=== PATIENT | male | born 1960 | race Caucasian/White ===

== ENCOUNTER 2017-05-14 11:09 | Inpatient (IN) | payer OTHER ==
[~2017-05-14] VITALS: Ht 180.3 cm; Wt 127.7 kg
[~2017-05-14 11:09] MED LIST: Aleve PO; CLARINEX5 MG PO; Coumadin,Jantoven PO; DEMADEX20 MG PO; FLONASE16 G1 BOTH NARES; Fioricet,Esgic,Repan PO; Flonase BOTH NARES; GLUCOSAMINE OTC; K-TAB10 MEQ PO; METOLAZONE5 MG PO; PLAVIX75 MG PO; ST. JOSEPH ASPI81 MG PO; Theragran PO
[2017-05-14 12:07] LABS: BASOPHIL (%) 0.3 % (0-1); EOSINOPHIL (%) 4.8 % (0-5); EOSINOPHIL COUNT 0.4 K/uL (0-0.3); HEMATOCRIT 41.4 % (38.0-50.0); IMMATURE GRANULOCYTE (%) 0.8 % (0.0-0.7); LYMPHOCYTE (%) 14.9 % (15-42); LYMPHOCYTE COUNT 1.2 K/uL (1.0-2.8); MCH 29.8 PG (29.0-34.0); MCHC 33.1 G/DL (30.0-36.0); MONOCYTE (%) 7.3 % (3-12); MONOCYTE COUNT 0.6 K/uL (0-0.8); NEUTROPHIL (%) 71.9 % (45-76); NEUTROPHIL COUNT 5.7 K/uL (1.8-6.4); PLATELET COUNT 235 K/uL (156-360); RBC DIS.WIDTH-CV 12.2 % (11.8-14.6); RBC DIS.WIDTH-SD 40.1 % (39-53)
[2017-05-14 12:08] LABS: HEMOGLOBIN 13.7 G/DL (12.5-16.6)
[2017-05-14 12:11] LABS: INTER. NORMALIZED RATIO 1.1
[2017-05-14 12:12] LABS: CHLORIDE 108 mEq/L (99-109); SODIUM 144 mEq/L (136-147)
[2017-05-14 12:13] LABS: PTT 29.4 SEC (25-37)
[2017-05-14 12:14] LABS: GLUCOSE 109 mg/dL (70-99)
[2017-05-14 12:18] LABS: CREATININE 0.9 mg/dL (0.6-1.3); GFR ESTIMATE (CALCULATED) > 59 mL/min/ (58.99-99999); UREA NITROGEN (BUN) 15 mg/dL (9-23)
[2017-05-14 12:24] LABS: TROP-I INTERPRETATION NEGATIVE; TROPONIN-I 0.03 ng/mL (0.0-0.30)
[2017-05-14] MEDS ORDERED: BUTALB-CAFF-AC1 EACH PO (14:26)
[2017-05-14] MEDS ORDERED: CEPHALEXIN500 MG PO (14:26)
[2017-05-14] MEDS ORDERED: TORSEMIDE20 MG PO (14:27)
[2017-05-14] MEDS ORDERED: NEXIUM40 MG PO (14:27)
[2017-05-14 19:23] VITALS: BP 154/91
[2017-05-14 23:38] VITALS: BP 150/79
[2017-05-15 02:16] LABS: HEMATOCRIT 39.2 % (38.0-50.0); MCHC 33.2 G/DL (30.0-36.0); MCV 90.3 FL (86-99); PLATELET COUNT 223 K/uL (156-360); RBC DIS.WIDTH-CV 12.3 % (11.8-14.6); RBC DIS.WIDTH-SD 40.7 % (39-53); RED BLOOD COUNT 4.34 M/uL (4.00-5.50); WHITE BLOOD COUNT 8.9 K/uL (4.1-10.2)
[2017-05-15 02:30] LABS: INTER. NORMALIZED RATIO 1.2
[2017-05-15 03:30] VITALS: BP 119/60
[2017-05-15 08:34] VITALS: BP 122/68
[2017-05-15 19:30] VITALS: BP 124/74
[2017-05-15 23:00] VITALS: BP 105/58
[2017-05-16 04:00] VITALS: BP 101/65
[2017-05-16 08:20] VITALS: BP 122/67
[2017-05-16 15:14] LABS: BASE EXCESS 1.5 mEq/L (-3 to +3); BICARBONATE 24.7 mEq/L (22-26); CARBOXY HGB 2.1 % (0-5); COMMENTS - BLOOD GASES A+; METHEMOGLOBIN 1.2 % (0-1.5); PCO2 34 mm Hg (35-45); PO2 72 mm Hg (80-100); SITE RR; pH 7.47 (7.35-7.45)
[2017-05-16 15:15] LABS: DEVICE CANNULA; O2 FLOW 2 L/MIN; TOTAL RESP RATE 16 resp/min
[2017-05-16 16:00] VITALS: BP 139/74
[2017-05-16 19:30] VITALS: BP 121/69
[2017-05-16 23:00] VITALS: BP 120/79
[2017-05-17 04:00] VITALS: BP 105/62
[2017-05-17 06:08] LABS: HEMATOCRIT 40.7 % (38.0-50.0); HEMOGLOBIN 13.1 G/DL (12.5-16.6); MCH 29.4 PG (29.0-34.0); MCHC 32.2 G/DL (30.0-36.0); MCV 91.3 FL (86-99); RBC DIS.WIDTH-CV 12.4 % (11.8-14.6); RBC DIS.WIDTH-SD 40.4 % (39-53); RED BLOOD COUNT 4.46 M/uL (4.00-5.50); WHITE BLOOD COUNT 9.3 K/uL (4.1-10.2)
[2017-05-17 06:24] LABS: PLATELET COUNT 293 K/uL (156-360)
[2017-05-17 06:44] LABS: ALBUMIN 3.7 G/DL (3.2-4.8); ALKALINE PHOSPHATASE 103 IU/L (3-129); ALT (GPT) 16 IU/L (3-49); AST (GOT) 18 IU/L (2-34); CHLORIDE 105 MEQ/L (99-109); CREATININE 0.9 MG/DL (0.6-1.3); GFR ESTIMATE (CALCULATED) > 59 mL/min/ (58.99-99999); GLUCOSE 90 mg/dL (70-99); SODIUM 140 MEQ/L (136-147); TOTAL BILIRUBIN 0.4 MG/DL (0.0-1.0); TOTAL PROTEIN 7.1 G/DL (6.4-8.3); UREA NITROGEN (BUN) 15 mg/dL (9-23)
[2017-05-17 07:03] VITALS: BP 109/64
[2017-05-17 11:29] VITALS: BP 124/73
[2017-05-17 14:39] VITALS: BP 138/68
[2017-05-17 20:15] VITALS: BP 121/71
[2017-05-18 00:01] VITALS: BP 112/61
[2017-05-18 04:23] VITALS: BP 108/54
[2017-05-18 05:36] VITALS: BP 138/65
[2017-05-18 07:10] VITALS: BP 130/88
[2017-05-18] MEDS ORDERED: XARELTO20 MG PO (11:11)
[2017-05-18] MEDS ORDERED: XARELTO15 MG PO (11:11)
[2017-05-18 11:13] VITALS: BP 124/76
== END 2017-05-18 12:34 | disposition home or self-care (01) | DRG 167 ==
LOC: EME 11:09 → 4EAST 14:09 → EDOF 14:09 → ENRESERV 14:09 → EDOF 14:20 → ENRESERV 18:11 → 4EAST 20:04 → ENPENDDIS 05-18 → ENRESERV 05-18 05:00 → 2EAST 05-18 05:15
PROVIDERS: Emergency Medicine; Internal Medicine
PROC: 06H03DZ Insertion of Intraluminal Device into Inferior Vena Cava, Percutaneous Approach (ICD-10-PCS; principal; 2017-05-15)
DX: I26.92 Saddle embolus of pulmonary artery without acute cor pulmonale (principal); I82.433 Acute embolism and thrombosis of popliteal vein, bilateral; I82.4Z3 Acute embolism and thrombosis of unspecified deep veins of distal lower extremity, bilateral; I11.0 Hypertensive heart disease with heart failure; I50.9 Heart failure, unspecified; E66.9 Obesity, unspecified; Z68.39 Body mass index [BMI] 39.0-39.9, adult; J30.2 Other seasonal allergic rhinitis; G43.909 Migraine, unspecified, not intractable, without status migrainosus; Z98.890 Other specified postprocedural states; Z79.02 Long term (current) use of antithrombotics/antiplatelets; Z86.711 Personal history of pulmonary embolism; Z86.718 Personal history of other venous thrombosis and embolism; Z87.442 Personal history of urinary calculi
CPT/HCPCS: 36600; 70450; 71045; 71046; 71275; 80048; 80053; 82803; 83880; 84484; 85025; 85027; 85379; 85610; 85730; 93005; 93306; 93970; 99281; 99285; C1769; C1894; J2250; J3010